=== PATIENT | female | born 1970 | race Caucasian/White ===

== ENCOUNTER 2018-04-30 06:14 | Emergency (ER) | payer OTHER ==
[~2018-04-30] VITALS: Ht 167.6 cm; Wt 59.9 kg
[2018-04-30 06:21] VITALS: BP 129/95
== END 2018-04-30 08:36 | disposition home or self-care (01) ==
LOC: ER 06:14
DX: L03.011 Cellulitis of right finger (principal)
CPT/HCPCS: 10060; 73130